=== PATIENT | female | born 1995 | race Two or more races ===

== ENCOUNTER → 2022-11-10 | Emergency (ER) | payer OTHER ==
[~2022-11-10] VITALS: Ht 165.1 cm; Wt 59.0 kg
[~2022-11-10] MED LIST: DOLOGEN CAPLET1 EACH PO; TUSNEL LIQUID178 ML PO; ZYRTEC10 MG PO
== END | disposition home or self-care (01) ==
LOC: ER 09:36
PROVIDERS: General Practice
DX: B34.9 Viral infection, unspecified (principal); Z20.822 Contact with and (suspected) exposure to COVID-19; Z91.013 Allergy to seafood

== ENCOUNTER 2023-01-05 03:24 | Emergency (ER) | payer OTHER ==
[~2023-01-05] VITALS: Ht 162.6 cm; Wt 59.0 kg
[2023-01-05 05:08] LABS: URINE APPEARANCE Cloudy; URINE BILIRRUBIN Negative (NEGATIVE); URINE BLOOD Trace; URINE COLOR Yellow; URINE GLUCOSE Negative (NEGATIVE); URINE LEUKOCYTE Large; URINE NITRATE Negative; URINE PROTEIN Negative (NEGATIVE); URINE UROBILINOGEN 0.2 E.U./dl
[2023-01-05 05:10] LABS: HEMATOCRIT 35.6 % (36.0-45.00); HEMOGLOBIN 11.3 g/dL (12.0-15.00); MEAN CELL VOLUME 73.8 fL (80.00-100.00); MEAN CORPUSCULAR HEMOGLOBIN 23.4 pg (27.00-32.0); MEAN CORPUSCULAR HGB CONC 31.7 g/dl (32.0-36.0); PLATELET COUNT 304 K/uL (150-450); RED BLOOD COUNT 4.82 M/uL (4.00-6.00); RED CELL DISTRIBUTION WIDTH 15.4 % (11.5-14.5)
[2023-01-05 05:11] LABS: URINE BACTERIA 1335.5 uL (0.0-1933); URINE EPITHELIAL CELLS 12.8 uL (0.0-38.8); URINE RBC 11.6 uL (0.0-20.8); URINE WBC 622.5 uL (0.0-23.2)
[2023-01-05 05:27] LABS: ANION GAP 10 (10.0-20.0); BLOOD UREA NITROGEN 7 mg/dL (7-18); BUN CREA RATIO 11 (7.0-25.0); CALCIUM 8.9 mg/dL (8.5-10.1); CARBON DIOXIDE 26 mEq/L (21-32); CHLORIDE 107 mmol/L (98-107); CREATININE SERUM 0.65 mg/dL (0.55-1.02); GFR 110.18; GLUCOSE FASTING 85 mg/dL (65-100); OSMOLALITY SERUM 275 MOSM/KG (275-295); POTASSIUM 3.63 mEq/L (3.5-5.1); SODIUM 139 mmol/L (136-145)
[2023-01-05 06:03] LABS: HCG QUANTITATIVE < 1 mUI/mL (1-3)
== END 2023-01-05 09:40 | disposition home or self-care (01) ==
LOC: ER 03:24
PROVIDERS: General Practice
DX: R30.0 Dysuria (principal)